=== PATIENT | female | born 1985 | race Two or more races ===

== ENCOUNTER 2017-01-15 23:15 | Emergency (ER) | payer MEDICAID ==
[2017-01-15 23:29] VITALS: BP 150/83; PULSE 80; TEMP 98.1; O2SAT 99
[2017-01-16] MEDS ORDERED: Tetanus/Diphtheria Toxoids 0.5 ml Syringe IM ONE ×2 (00:12→00:14)
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
[2017-01-16 00:20] VITALS: RESP 20
== END 2017-01-16 00:20 | disposition home or self-care (01) ==
LOC: C.ER 23:15
DX: S60.476A Other superficial bite of right little finger, initial encounter (principal); Y04.1XXA Assault by human bite, initial encounter; Y92.9 Unspecified place or not applicable

== ENCOUNTER 2018-08-31 15:58 | Outpatient (CLI) | payer OTHER, MEDICAID | END 2018-08-31 15:59 | disposition home or self-care (01) | LOC: C.RADIC 15:58 ==